=== PATIENT | male | born 1975 | race Caucasian/White ===

== ENCOUNTER 2018-08-12 18:31 | Inpatient (IN) ==
--- OUTSIDE RECORDS SUMMARY | 2018-08-12 18:34 | External Medical Summary | Continuity of Care Document ---
:1975 Author Name Rica M.Rosa Maria Address Unavailable Unavailable , Care Team Providers Name Role Phone Unavailable Unavailable Unavailable [email or web address] [email or web address] FAVIO III, E Unavailable Unavailable Unavailable Unavailable Unavailable Problems Hypertension (401.9) (I10) PTSD (post-traumatic stress disorder) (309.81) (F43.10) Anxiety (300.00) (F41.9) Cough (786.2) (R05) Shortness of breath (786.05) (R06.02) Wheezing (786.07) (R06.2) Bronchitis (490) (J40) Upper respiratory infection (465.9) (J06.9) Allergies and Adverse Reactions Iodine Crystals (Allergy) Dust (Allergy) Shellfish (Allergy) Reaction: Hives Medications Robitussin DM SYRP; TAKE 1 TEASPOONFUL EVERY 4 TO 6 HOURS NEEDED. , M.D. Refills: 0 CeleXA 40 MG Oral Tablet; 1 tablet daily , M.D. Refills: 0 KlonoPIN 1 MG Oral Tablet; TAKE 1 TABLET TWICE DAILY NEED ED. , M.D. Quantity: 60 Refills: 0 Ventolin HFA 108 (90 Base) MCG/ACT Inhal ation Aerosol Solution; INHALE 2 PUFFS EVERY 4 HOURS NEEDED , M.D. 18 GM Inhaler Quantity: 1 Refills: 5 Lisinopril 10 MG Oral Tablet; TAKE 1 TABLET DAILY. , M.D. 90 Tablet Bottle Quantity: 1 Refills: 3 Omeprazole 40 MG Oral Capsule Delayed Release; TAKE 1 CAPSULE DAILY. KALPANA Gagnon Start: 23-May-2014 Quantity: 30 Refills: 3 raNITIdine HCl - 300 MG Oral Capsule; TAKE 1 CAPSULE A T BEDTIME. KALPANA Gagnon Start: 23-May-2014 Quantity: 1 30 Capsule Bottle Refills: 2 HYDROcodone-Homatropine 5-1.5 MG/5ML Ora l Syrup; TAKE 1 TEASPOONFUL EVERY 4 TO 6 HOURS NEEDED. KALPANA Gagnon Start: 23-May-2014 Quantity: 1 180 ML Bottle Refills: 3 Procedures History of Excision Of Lingual Frenum St atus: Completed History of Ankle Surgery Status: Complet ed Immunizations Tdap On: 21-Aug-1994 Family History Mother Family history of lung cancer (V16.1) (Z80.1) Status: Active Father Family history of diabetes mellitus (V18.0) (Z83.3) Status: Active Family history of colon cancer (V16.0) (Z80.0) Status: Activ e Brother Family history of depression (V17.0) (Z81.8) Status: Active Family history of attention deficit hyperactivity diso rder (ADHD) Status: Active (V17.0) (Z81.8) Social History - Smoking Status Former smoker Plan of Treatment Planned Observations Planned Goals not documented Results No Known Results Results not documented
[2018-08-12 20:06] LABS: Basophils # (auto) 0.02 K/uL (0-0.2); Basophils % (auto) 0.2 %; Eosinophils # (auto) 0.09 K/uL (0-0.5); Eosinophils % (auto) 0.9 %; Hematocrit (blood only) 43.5 % (42-52); Hemoglobin 15.1 g/dL (14.0-18.0); Immature Granulocytes # (auto) 0.08 K/uL (0.00-0.02); Immature Granulocytes % (auto) 0.8 %; Lymphocytes % (auto) 24.8 %; Mean Corpuscular Hgb Conc 34.7 g/dL (32-36); Mean Corpuscular Volume 85.8 fL (80-100); Mean Platelet Volume 12.5 fL (7.4-10.4); Monocytes # (auto) 1.03 K/uL (0.11-0.59); Monocytes % (auto) 9.8 %; Neutrophils # (auto) 6.67 K/uL (1.4-6.5); Neutrophils % (auto) 63.5 %; Platelet Count 214 K/uL (130-400); RDW Coefficient of Variation 13.7 % (11.5-14.5); RDW Standard Deviation 42.8 fL (36.4-46.3); Red Blood Count 5.07 M/uL (4.7-6.1); White Blood Count 10.49 K/uL (4.8-10.8)
[2018-08-12 20:25] LABS: Albumin Level 3.7 gm/dl (3.4-5.0); BUN Creatinine Ratio 12.3 (10-20); Calcium 8.5 mg/dl (8.5-10.1); Creatinine Clr Calc Pharmacy 134.9 ml/min; Est GFR (African American) 101.7; Est GFR (Non-African American) 87.7; Potassium 3.6 mmol/L (3.5-5.1)
[2018-08-12 20:33] LABS: Acetaminophen < 2 ug/ml (10-30)
[2018-08-12 20:35] LABS: Bilirubin,Total 0.2 mg/dl (0.2-1); Globulin 3.6 gm/dl (2.5-4.0); Total Protein 7.3 gm/dl (6.4-8.2)
[2018-08-12 20:42] LABS: Appearance Urine Clear (Clear); Bilirubin Urine Negative (Negative); Blood Urine Negative (Negative); Color Urine Yellow; Glucose Urine UA Negative (Negative); Ketones Urine Negative (Negative); Leukocyte Esterase Urine Negative (Negative); Nitrite Urine Negative (Negative); Protein Urine Negative (Negative); Specific Gravity Urine 1.016 (1.000-1.030); Urobilinogen Urine Negative (Negative)
[2018-08-12] MEDS ORDERED: LOSARTAN POTASSIUM 25 MG TAB PO STA (21:00)
[2018-08-12] MEDS ORDERED: LORazepam 0.5 MG TAB PO STA (21:00)
[2018-08-12 21:07] LABS: Amphetamines+Metham, Urine Neg (Neg); Barbiturates, Urine Neg (Neg); Benzodiazepine, Urine Neg (Neg); Cocaine, Urine Neg (Neg); MDMA (Ecstacy), Urine Neg (Neg); Methadone, Urine Neg (Neg); Opiate, Urine Neg (Neg); Phencyclidine, Urine Neg (Neg)
[2018-08-12] MEDS ORDERED: LORazepam 1 MG TAB SL STA (21:48)
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
[2018-08-12] MEDS ORDERED: AMLODIPINE BESYLATE 5 MG TAB PO ONE (22:28)
[2018-08-12] MEDS ORDERED: ALUMINUM/MAGNESIUM SUSP 30 ML UDC PO PRN (23:48)
[2018-08-12] MEDS ORDERED: BISMUTH SUBSALICYLATE PER ML OMNICELL CHARGE PO PRN (23:48)
[2018-08-12] MEDS ORDERED: ACETAMINOPHEN 325 MG TAB PO PRN (23:48)
[2018-08-12] MEDS ORDERED: SODIUM CHLORIDE 0.65% NA SOLN 45 ML (OCEAN) PRN (23:48)
[2018-08-13] MEDS ORDERED: NICOTINE POLACRILEX 2 MG GUM MT PRN (00:45)
[2018-08-13] MEDS ORDERED: LISINOPRIL 10 MG TAB PO SCH (09:00)
[2018-08-13] MEDS: NICOTINE 21 MG/24 HR TDSY TD SCH (10:38)
[2018-08-13] MEDS ORDERED: TRAZODONE HCL 50 MG TAB PO PRN (13:00)
[2018-08-13] MEDS: DULOXETINE HCL 30 MG CAP PO SCH (13:37)
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
[2018-08-13] MEDS ORDERED: LISINOPRIL 10 MG TAB PO STA (16:12)
[2018-08-14] MEDS: NICOTINE 21 MG/24 HR TDSY TD SCH (09:28)
[2018-08-14] MEDS: DULOXETINE HCL 30 MG CAP PO SCH (09:28)
[2018-08-14] MEDS: LISINOPRIL 20 MG TAB PO SCH (09:28)
--- NOTE | 2018-08-14 12:49 | Psychiatric Progress Note ---
Date of Service August 14, 2018 Impression / Recommendations Impression Patient reported improvement in mood this morning, however anxiety has worsened as the days progressed. Patient appears severely anxious during encounter today and reports concern regarding his father's medical treatment and his brother having to take care of his usual tasks at home. We reviewed potential medication changes to further address mood and anxiety. Patient is agreeable to further titration of Cymbalta in order to target anxiety and depression. Risks and benefits reviewed, will titrate to 60 mg starting tomorrow morning. Patient is also concerned that hydroxyzine at the current as needed dosage has not been effective for his level of anxiety today. Discussed option to increase dosage of hydroxyzine to 50 mg as needed, as even the 100 mg total bedtime dose he received last night was not effective for sedation. Encouraged patient to share with staff if he does experience significant fatigue with new dosage. Patient was also agreeable to titrating trazodone to 100 mg at bedtime, which will be scheduled each evening at his request given long-standing history of sleep concerns. Risks and benefits of all medication adjustments were reviewed and patient was agreeable to these changes. Patient denies suicidality at this time; however, his ongoing anxiety related to stressors of admission creates concern for rapid decompensation if discharged prematurely. Ideally patient would participate in family meeting with his girlfriend or other identified outpatient support in order to mitigate some of these risk factors. Patient remains at high risk of harm to self if discharged prematurely, therefore ongoing inpatient psychiatric hospitalization is recommended. (1) MDD (major depressive disorder): 08/13 - Per H&P - q15 minute Safety checks public aid insurance application therapy referral PCP referral Meeting with girlfriend Encourage psychiatrist as part of outpt treatment plan for aftercare - pt rather hesitant about psychiatrist after care as feels he had bad experiences with psychiatrists to date. pt was wondering about Viibryd but given practical concerns about this med including not on formulary at this hospital, pt indicated open to resuming med took in 2014 which was Cymbalta (took 30mg for coule months and seems was stopped shortly after raised to 60mg with possible worsening SI, however per medical record SI concerns were still quite present even in the weeks off the med). 08/14 - Titrate Cymbalta to 60mg qAM starting tomorrow morning - Family meeting with girlfriend will need scheduled (2) Anxiety: 08/13 - Per H&P - Vistaril for anxiety and insomnia concerns and trazodone as additional med option for insomnia given pt's h/o trazodone being helpful and Benadryl has been limited benefit in past and Vistaril might not be effective (last night pt was likely quite exhausted and drained by time got to to bed and might have been able to sleep more from context then from med impact) pt wondering about Klonopin for anxiety but given AUD history and pt's overall history will aim for prn Vistaril as first adjunctive med for anxiety symptoms Cymbalta started at 30mg a day and might titrate to 60mg if tolerating well 08/14 - Will trial titration of hydroxyzine to 50mg prn anxiety, given reports that lower dosage is ineffective - monitor for sedation - Will titrate trazodone to 100mg qHS and have scheduled per patient request, as required several prn medications last evening to assist with sleep - Assist patient with development of healthy and effective coping strategies (3) Hypertension: 08/13 - Per H&P - lisinopril 10mg qam added given pt's history of taking this med in the past, low threshold to raise to 20mg a day if bp not improving further 08/14 - Lisinopril increased to 20mg qAM starting this morning; as received a repeat dose of 10mg yesterday afternoon - Further titration as needed - additional anxiety reported today may also be contributing to high readings Inventory Assets Strengths: seeking therapy appts, seeking medication to address symptoms Needs: health insurance and outpatient providers, Risk Factors Assessment 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 Pt is admitted voluntarily. Pt has extensive history of major depressive disorder, anxiety, and h/o alcohol use disorder who drinks alcohol only a few times a year at most in past number of years. Chief Complaint "Um, a little more anxious now. I was feeling pretty good this morning." Review of Systems Notes Constitutional: reports anxiety and fatigue; poor sleep last evening Cardiovascular: denied Respiratory: denied Gastrointestinal: denied Neurological: denied Psychiatric: denies symptoms other than stated above Total of at least 10 systems reviewed, pertinent positives as above and in HPI. Sleep Information Total Hours of Sleep: 6.75 Sleep Comments: pt on q-15 minute checks Meal Information Percent Meal Consumed - Breakfast: 100 Percent Meal Consumed - Lunch: 0 Percent Meal Consumed - Dinner: 100 Nutrition Comment: pt ate breakfast late Subjective Subjective Patient was seen & assessed and interval progress reviewed with Treatment Team. Staff reports the patient's mood appears to be improving somewhat. Patient was provided with trazodone in order to assist with insomnia. It is reported he and his girlfriend have reconciled, and we will need to schedule family meeting if patient is still willing. Patient was seen today to assess progress since admission. Patient states he was doing well this morning; however, is noticing worsening anxiety throughout the day today. He admits to just getting off the phone with his brother whom he states is "having a mental breakdown of his own." The patient states his brother has taken over a lot of his responsibilities with caring for his dad since the patient has been admitted to the hospital. In addition to this, the patient states his girlfriend has not yet called today which is concerning to him as well. Patient denies any noticeable side effects from medication adjustments made yesterday. He is agreeable to continuing to titrate Cymbalta to target mood and anxiety. Patient states current dosage of hydroxyzine has been ineffective to manage anxiety, and he is requesting Klonopin as this is been effective in the past. Patient states he had difficulty falling asleep last evening requiring 2 as needed doses of 50 mg hydroxyzine in combination with 50 mg of trazodone. He is agreeable to titrating trazodone to better target sleep. He is requesting that this medication be scheduled as he has had "sleep issues since I was 13." Patient de nies any suicidal thoughts today, but does appear severely anxious. He does not report any other questions or concerns at this time. Physical Exam Psychiatric Orientation: alert, oriented x 3, cooperative (Superficialy) and + guarded (Somewhat) Apperance: appropriately groomed Eye Contact: + poor eye contact (Looking at the floor or past this provider, limited direct eye contact) Motor Behavior: steady gait and station and + psychomotor agitation (Displays restlessness, frequently running fingers through hair, anxiously changing positions in chair) Speech: normal rate/rhythm/volume of speech (Somewhat anxious tone) Affect: + depressed affect, + anxious affect and mood congruent with affect Mood: + anxious mood; no depressed mood "More anxiety than anything right now" Thought Process: goal directed thought process and linear/logical thought process Thought Content: + preoccupation (With concerns regarding his father's medical treatment) and + paranoid Suicidal Thoughts: denies suicidal thoughts and denies suicidal plan Homicidal Thoughts: denies homicidal thoughts Hallucinations: no auditory hallucinations and no visual hallucinations Cognition: recent memory grossly intact, remote memory grossly intact, attention grossly intact and language grossly intact Estimated Intelligence: consistent with education level Insight: + fair insight Judgement: + fair judgement Vital Signs (Past 24 Hours) Last Vital Signs Temp 36.6 C 08/14/18 06:49 Pulse 97 H 08/14/18 10:04 Resp 20 08/14/18 06:49 BP 164/93 H 08/14/18 10:04 Pulse Ox 93 08/13/18 00:23 Results & Data Current Inpatient Medications Current Inpatient Medications: Current Inpatient Medications Acetaminophen (Tylenol) 650 mg PO Q4H PRN PRN Reason: Headache or Minor Fever Stop: 09/11/18 23:47 Al Hydrox/Mg Hydrox/Simethicone (Maalox) 30 ml PO Q4H PRN PRN Reason: GI Upset Stop: 09/11/18 23:47 Bismuth Subsalicylate (Kaopectate) 15 ml PO PRN PRN PRN Reason: Loose Stool Stop: 09/11/18 23:47 Duloxetine HCl (Cymbalta) 30 mg PO QAM [facility] Stop: 09/12/18 12:59 Last Admin: 08/14/18 09:28 Dose: 30 mg Documented by: Hydroxyzine HCl (Vistaril) 25 mg PO Q4H PRN PRN Reason: Anxiety Stop: 09/11/18 23:47 Last Admin: 08/14/18 10:20 Dose: 25 mg Documented by: Hydroxyzine HCl (Vistaril) 50 mg PO HSZ PRN PRN Reason: Insomnia Stop: 09/11/18 23:47 Last Admin: 08/14/18 01:01 Dose: 50 mg Documented by: Lisinopril (Zestril) 20 mg PO QAM [facility] Stop: 09/13/18 08:59 Last Admin: 08/14/18 09:28 Dose: 20 mg Documented by: Magnesium Hydroxide (Milk Of Magnesia) 30 ml PO DAILY PRN PRN Reason: Constipation Stop: 09/11/18 23:47 Miscellaneous (Remove Nicoderm Patch) 1 ea N/A DAILY@2200 [facility] Stop: 09/12/18 21:59 Last Admin: 08/13/18 21:00 Dose: Not Given Documented by: Nicotine (Nicoderm Cq) 21 mg TD QAM [facility] Stop: 09/12/18 08:59 Last Admin: 08/14/18 09:28 Dose: 21 mg Documented by: Nicotine Polacrilex (Nicorette 2mg) 1 piece MT UD PRN PRN Reason: Nicotine Withdrawal Stop: 09/12/18 00:44 Sodium Chloride ([place] Nasal) 1 - 2 sprays NA PRN PRN PRN Reason: Nasal Dryness/Congestion Stop: 09/11/18 23:47 Trazodone HCl (Desyrel) 50 mg PO HS PRN PRN Reason: insomnia Stop: 09/12/18 12:59 Last Admin: 08/14/18 01:41 Dose: 50 mg Documented by: Post Discharge Appointments Primary Care Physician Name Of Family Doctor: [facility] (Enrollment appt) Primary Care Date of Appointment with PCP: 08/18/18 Time of Appointment with PCP: 1:30 p.m. Provider Appointment Comment: [address], [address], [place], [place] Psychiatrist Name of Psychiatrist: Enrollment appt: please bring the following: photo ID (proof of address) Psychiatrist's Phone Number: proof of income (1 month worth of paystubs), most recent tax return Therapist Name of Therapist: denies Dynamic Etching Processor Name of Dynamic Etching Processor: Denies Contact Information Discharge Discharge Address: [address] [place] [address] CPT Code CPT Code 94024 (1) MDD (major depressive disorder) Active/Remission status: currently active Major depression episode severity: moderate Major depression recurrence: recurrent Qualified Code(s): F33.1 - Major depressive disorder, recurrent, moderate (2) Hypertension Hypertension type: essential hypertension Qualified Code(s): I10 - Essential (primary) hypertension
[2018-08-14] MEDS: MAGNESIUM HYDROXIDE SUSP 30 ML UDC PO PRN (17:19)
[2018-08-14] MEDS ORDERED: TRAZODONE HCL 100 MG TAB PO SCH (22:00)
[2018-08-15] MEDS: LISINOPRIL 20 MG TAB PO SCH (08:58)
[2018-08-15] MEDS: DULOXETINE HCL 60 MG CAP PO SCH (08:58)
[2018-08-15] MEDS: NICOTINE 21 MG/24 HR TDSY TD SCH (08:58)
[2018-08-15] MEDS: MAGNESIUM HYDROXIDE SUSP 30 ML UDC PO PRN (14:19)
[2018-08-15] MEDS ORDERED: LISINOPRIL 10 MG TAB PO ONE (15:30)
--- NOTE | 2018-08-15 18:24 | Psychiatric Progress Note ---
Date of Service August 15, 2018 Impression / Recommendations Impression Patient reports improvement in mood this morning; however, states that his anxiety has increased since learning that both his brother and his girlfriend are unavailable for family meetings before 08/18. Patient does appear to be visit believed anxious when discussing this. Patient was offered the possibility of a phone meeting with girlfriend if this works better with her schedule. Reviewed ongoing hypertension, and patient is agreeable with further titration of lisinopril. We will provide patient with 10 mg as one-time dose now, with increase to 30 mg daily starting tomorrow morning. Patient reports ongoing difficulty falling asleep, and is agreeable to titrating his dose of trazodone to 150 mg tonight. Patient admits to feeling "shaky". Tremor is not visualized, he denies headache, nausea, visual hallucinations, diaphoresis, hot flashes, or chills. Pupils are not observed to be dilated. We will continue Cymbalta at current dose of 60 mg. Patient is agreeable with changes outlined above. Patient denies SI, but would still recommend family meeting prior to discharge to ensure safety and attempt to further mitigate risk factors. Patient remains at high risk of harm to self if discharged prematurely, therefore ongoing inpatient psychiatric hospitalization is recommended. (1) MDD (major depressive disorder): 08/13 - Per H&P - q15 minute Safety checks public aid insurance application therapy referral PCP referral Meeting with girlfriend Encourage psychiatrist as part of outpt treatment plan for aftercare - pt rather hesitant about psychiatrist after care as feels he had bad experiences with psychiatrists to date. pt was wondering about Viibryd but given practical concerns about this med including not on formulary at this hospital, pt indicated open to resuming med took in 2014 which was Cymbalta (took 30mg for coule months and seems was stopped shortly after raised to 60mg with possible worsening SI, however per medical record SI concerns were still quite present even in the weeks off the med). 08/14 - Titrate Cymbalta to 60mg qAM starting tomorrow morning - Family meeting with girlfriend will need scheduled 08/15 - Continue Cymbalta at 60mg daily - Attempting to schedule meeting with girlfriend (2) Anxiety: 08/13 - Per H&P - Vistaril for anxiety and insomnia concerns and trazodone as additional med option for insomnia given pt's h/o trazodone being helpful and Benadryl has been limited benefit in past and Vistaril might not be effective (last night pt was likely quite exhausted and drained by time got to to bed and might have been able to sleep more from context then from med impact) pt wondering about Klonopin for anxiety but given AUD history and pt's overall history will aim for prn Vistaril as first adjunctive med for anxiety symptoms Cymbalta started at 30mg a day and might titrate to 60mg if tolerating well 08/14 - Will trial titration of hydroxyzine to 50mg prn anxiety, given reports that lower dosage is ineffective - monitor for sedation - Will titrate trazodone to 100mg qHS and have scheduled per patient request, as required several prn medications last evening to assist with sleep - Assist patient with development of healthy and effective coping strategies 08/15 - Continue hydroxyzine as needed; trazodone titrated to 150mg this evening (3) Hypertension: 08/13 - Per H&P - lisinopril 10mg qam added given pt's history of taking this med in the past, low threshold to raise to 20mg a day if bp not improving further 08/14 - Lisinopril increased to 20mg qAM starting this morning; as received a repeat dose of 10mg yesterday afternoon - Further titration as needed - additional anxiety reported today may also be contributing to high readings 08/15 - One time dose of lisinopril 10mg given this afternoon - Will order dose increase to 30mg daily starting tomorrow morning; continue observations Inventory Assets Strengths: seeking therapy appts, seeking medication to address symptoms Needs: health insurance and outpatient providers, Risk Factors Assessment 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 Pt is admitted voluntarily. Pt has extensive history of major depressive disorder, anxiety, and h/o alcohol use disorder who drinks alcohol only a few times a year at most in past number of years. Chief Complaint "Just upset right now." Review of Systems Notes Constitutional: reports feeling "shaky" Cardiovascular: denied Respiratory: denied Gastrointestinal: reports constipation Neurological: denied Psychiatric: denies symptoms other than stated above Total of at least 10 systems reviewed, pertinent positives as above and in HPI. Sleep Information Total Hours of Sleep: 7 Sleep Comments: pt on q-15 minute checks Meal Information Percent Meal Consumed - Breakfast: 100 Percent Meal Consumed - Lunch: 100 Percent Meal Consumed - Dinner: 100 Nutrition Comment: pt ate breakfast late Subjective Subjective Patient was seen & assessed and interval progress reviewed with Nursing. Staff reports patient continues to appear flat and anxious on the unit. Blood pressure remains elevated overall, but is somewhat improved. Patient was seen today to assess progress since admission. Patient states that he was in a better mood this morning; however, now reports anxiety. He states he has reached out to both his brother and his girlfriend and both are unavailable for a meeting with social work before 08/18. Patient is concerned that this will require his length of stay to be lengthened. We reviewed that at times family meetings can be done via phone if necessary. Patient was comforted by this, but continued to display anxiety during remainder of encounter. Patient states that physically he feels "shaky," but denies any other concerns at this time. Patient denies SI or other needs from this provider. Physical Exam Psychiatric Orientation: alert, oriented x 3 and cooperative Apperance: appropriately dressed and appropriately groomed Eye Contact: + poor eye contact (Looking at the floor or past this provider, limited direct eye contact) Motor Behavior: steady gait and station and + psychomotor agitation (frequently running fingers through hair, changing positions in chair) Speech: normal rate/rhythm/volume of speech (Somewhat anxious tone) Affect: + anxious affect, + blunted affect and mood congruent with affect Mood: + anxious mood; no depressed mood "Just upset" Thought Process: goal directed thought process and linear/logical thought process Thought Content: reality based without delusions Suicidal Thoughts: denies suicidal thoughts and denies suicidal plan Homicidal Thoughts: denies homicidal thoughts Hallucinations: no auditory hallucinations and no visual hallucinations Cognition: recent memory grossly intact, remote memory grossly intact, attention grossly intact and language grossly intact Estimated Intelligence: consistent with education level Insight: + fair insight Judgement: + fair judgement Vital Signs (Past 24 Hours) Last Vital Signs Temp 36.8 C 08/15/18 12:33 Pulse 99 H 08/15/18 17:01 Resp 18 08/15/18 17:01 BP 167/81 H 08/15/18 17:01 Pulse Ox 93 08/13/18 00:23 Results & Data Current Inpatient Medications Current Inpatient Medications: Current Inpatient Medications Acetaminophen (Tylenol) 650 mg PO Q4H PRN PRN Reason: Headache or Minor Fever Stop: 09/11/18 23:47 Al Hydrox/Mg Hydrox/Simethicone (Maalox) 30 ml PO Q4H PRN PRN Reason: GI Upset Stop: 09/11/18 23:47 Bismuth Subsalicylate (Kaopectate) 15 ml PO PRN PRN PRN Reason: Loose Stool Stop: 09/11/18 23:47 Duloxetine [facility] ([facility]alta) [facility] Stop: 09/14/18 08:59 Last Admin: 08/15/18 08:58 Dose: 60 mg Documented by: Hydroxyzine HCl (Vistaril) 50 mg PO HSZ PRN PRN Reason: Insomnia Stop: 09/11/18 23:47 Last Admin: 08/14/18 01:01 Dose: 50 mg Documented by: Hydroxyzine HCl (Vistaril) 50 mg PO Q4H PRN PRN Reason: Anxiety Stop: 09/11/18 23:47 Last Admin: 08/15/18 17:09 Dose: 50 mg Documented by: Lisinopril (Zestril) 30 mg PO QAM [facility] Stop: 09/15/18 08:59 Magnesium Hydroxide (Milk Of Magnesia) 30 ml PO DAILY PRN PRN Reason: Constipation Stop: 09/11/18 23:47 Last Admin: 08/15/18 14:19 Dose: 30 ml Documented by: Miscellaneous (Remove Nicoderm Patch) 1 ea N/A DAILY@2200 [facility] Stop: 09/12/18 21:59 Last Admin: 08/14/18 21:26 Dose: 1 ea Documented by: Nicotine (Nicoderm Cq) 21 mg [facility] Stop: 09/12/18 08:59 Last Admin: 08/15/18 08:58 Dose: 21 mg Documented by: Nicotine Polacrilex (Nicorette 2mg) 1 piece MT UD PRN PRN Reason: Nicotine Withdrawal Stop: 09/12/18 00:44 Sodium Chloride ([place] Nasal) 1 - 2 sprays NA PRN PRN PRN Reason: Nasal Dryness/Congestion Stop: 09/11/18 23:47 Trazodone HCl (Desyrel) 150 mg PO HS [facility] Stop: 09/14/18 21:59 Post Discharge Appointments Primary Care Physician Name Of Family Doctor: [facility] (Enrollment appt) Primary Care Date of Appointment with PCP: 08/18/18 Time of Appointment with PCP: 1:30 p.m. Provider Appointment Comment: [id number], [address], [place], [place] Psychiatrist Name of Psychiatrist: Enrollment appt: please bring the following: photo ID (proof of address) Psychiatrist's Phone Number: proof of income (1 month worth of paystubs), most recent tax return Therapist Name of Therapist: denies Front Line Leader Name of Front Line Leader: Denies Contact Information Discharge Discharge Address: [address] [place] [id number] CPT Code CPT Code 17809 (1) MDD (major depressive disorder) Active/Remission status: currently active Major depression episode severity: moderate Major depression recurrence: recurrent Qualified Code(s): F33.1 - Major depressive disorder, recurrent, moderate (2) Hypertension Hypertension type: essential hypertension Qualified Code(s): I10 - Essential (primary) hypertension
[2018-08-15] MEDS: TRAZODONE HCL 100 MG TAB PO SCH (21:02)
[2018-08-16] MEDS: NICOTINE 21 MG/24 HR TDSY TD SCH (09:07)
[2018-08-16] MEDS: DULOXETINE HCL 60 MG CAP PO SCH (09:07)
[2018-08-16] MEDS: LISINOPRIL 20 MG TAB PO SCH (09:08)
[2018-08-16] MEDS: MAGNESIUM HYDROXIDE SUSP 30 ML UDC PO PRN (12:53)
--- NOTE | 2018-08-16 14:09 | Psychiatric Progress Note ---
Date of Service August 16, 2018 Impression / Recommendations Impression Patient reports improvement in mood. He feels meeting with his girlfriend this afternoon went well, it is reported that they both deny safety concerns at this time. Patient and girlfriend feel comfortable with discharge in the next day or so. Patient continues to report difficulty falling asleep, which is usual for him on an outpatient basis as well. Patient is agreeable with continuing his current medication regimen unchanged. We will follow up tomorrow to ensure that improvement in mood has been consistent, and discuss safe discharge planning. Patient remains at high risk of harm to himself if discharged prior to ensuring these arrangements. (1) MDD (major depressive disorder): 08/13 - Per H&P - q15 minute Safety checks public aid insurance application therapy referral PCP referral Meeting with girlfriend Encourage psychiatrist as part of outpt treatment plan for aftercare - pt rather hesitant about psychiatrist after care as feels he had bad experiences with psychiatrists to date. pt was wondering about Viibryd but given practical concerns about this med including not on formulary at this hospital, pt indicated open to resuming med took in 2014 which was Cymbalta (took 30mg for coule months and seems was stopped shortly after raised to 60mg with possible worsening SI, however per medical record SI concerns were still quite present even in the weeks off the med). 08/14 - Titrate Cymbalta to 60mg qAM starting tomorrow morning - Family meeting with girlfriend will need scheduled 08/15 - Continue Cymbalta at 60mg daily - Attempting to schedule meeting with girlfriend 08/16 - Continue current medication regimen - Successful meeting with girlfriend today (2) Anxiety: 08/13 - Per H&P - Vistaril for anxiety and insomnia concerns and trazodone as additional med option for insomnia given pt's h/o trazodone being helpful and Benadryl has been limited benefit in past and Vistaril might not be effective (last night pt was likely quite exhausted and drained by time got to to bed and might have been able to sleep more from context then from med impact) pt wondering about Klonopin for anxiety but given AUD history and pt's overall history will aim for prn Vistaril as first adjunctive med for anxiety symptoms Cymbalta started at 30mg a day and might titrate to 60mg if tolerating well 08/14 - Will trial titration of hydroxyzine to 50mg prn anxiety, given reports that lower dosage is ineffective - monitor for sedation - Will titrate trazodone to 100mg qHS and have scheduled per patient request, as required several prn medications last evening to assist with sleep - Assist patient with development of healthy and effective coping strategies 08/15 - Continue hydroxyzine as needed; trazodone titrated to 150mg this evening 08/16 - Reports some improvement, appearing more relaxed (3) Hypertension: 08/13 - Per H&P - lisinopril 10mg qam added given pt's history of taking this med in the past, low threshold to raise to 20mg a day if bp not improving further 08/14 - Lisinopril increased to 20mg qAM starting this morning; as received a repeat dose of 10mg yesterday afternoon - Further titration as needed - additional anxiety reported today may also be contributing to high readings 08/15 - One time dose of lisinopril 10mg given this afternoon - Will order dose increase to 30mg daily starting tomorrow morning; continue observations 08/16 - Continue lisinopril 30mg, recommending outpatient follow-up for ongoing management Inventory Assets Strengths: seeking therapy appts, seeking medication to address symptoms Needs: health insurance and outpatient providers, Risk Factors Assessment 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 Pt is admitted voluntarily. Pt has extensive history of major depressive disorder, anxiety, and h/o alcohol use disorder who drinks alcohol only a few times a year at most in past number of years. Chief Complaint "Yeah, the meeting went very well." Review of Systems Notes Constitutional: denied Cardiovascular: denied Respiratory: denied Gastrointestinal: reports constipation Neurological: denied Psychiatric: denies symptoms other than stated above Total of at least 10 systems reviewed, pertinent positives as above and in HPI. Sleep Information Total Hours of Sleep: 5.25 Sleep Comments: pt on q-15 minute checks Meal Information Percent Meal Consumed - Breakfast: 100 Percent Meal Consumed - Lunch: 100 Percent Meal Consumed - Dinner: 100 Nutrition Comment: pt ate breakfast late Subjective Subjective Patient was seen & assessed and interval progress reviewed with Treatment Team. Staff reports patient with his girlfriend scheduled for 1:00 this afternoon. Patient was agreeable to referral for aftercare at [facility]. Patient was seen today to assess progress since admission. Conversation was following his meeting with his girlfriend which she states went "very well." Patient states that he felt comfortable with what was discussed, and continues to feel supported by his girlfriend. Patient states he did not sleep well last evening, continuing to have racing thoughts preventing sleep. Patient admits at home he usually falls asleep to the sound of the television. Patient was educated on sleep hygiene and was encouraged to consider the use of a sound machine or radio, both while he is admitted here and is a substitution for the television once he returns home. Patient states he continues to tolerate his medication regimen. We reviewed that his blood pressure remains higher than desired long- term, but has been improving. Patient denies any suicidality, is hopeful for discharge within the next few days. Patient denies any other needs or concerns today. Physical Exam Psychiatric Orientation: alert, oriented x 3 and cooperative Apperance: appropriately dressed and appropriately groomed Eye Contact: good eye contact Motor Behavior: steady gait and station and no abnormal motor movements (Appearing much more calm today) Speech: normal rate/rhythm/volume of speech Affect: euthymic affect, + constricted affect (Somewhat) and mood congruent with affect Mood: no depressed mood and no anxious mood "Feeling pretty good today." Thought Process: goal directed thought process and linear/logical thought process Thought Content: reality based without delusions Suicidal Thoughts: denies suicidal thoughts and denies suicidal plan Homicidal Thoughts: denies homicidal thoughts Hallucinations: no auditory hallucinations and no visual hallucinations Cognition: recent memory grossly intact, remote memory grossly intact, attention grossly intact and language grossly intact Estimated Intelligence: consistent with education level Insight: + fair insight Judgement: + fair judgement Vital Signs (Past 24 Hours) Last Vital Signs Temp 36.6 C 08/16/18 06:53 Pulse 84 08/16/18 09:36 Resp 18 08/16/18 06:53 BP 134/89 08/16/18 09:36 Pulse Ox 93 08/13/18 00:23 Results & Data Current Inpatient Medications Current Inpatient Medications: Current Inpatient Medications Acetaminophen (Tylenol) 650 mg PO Q4H PRN PRN Reason: Headache or Minor Fever Stop: 09/11/18 23:47 Al Hydrox/Mg Hydrox/Simethicone (Maalox) 30 ml PO Q4H PRN PRN Reason: GI Upset Stop: 09/11/18 23:47 Bismuth Subsalicylate (Kaopectate) 15 ml PO PRN PRN PRN Reason: Loose Stool Stop: 09/11/18 23:47 Duloxetine [facility] ([facility]alta) [facility] Stop: 09/14/18 08:59 Last Admin: 08/16/18 09:07 Dose: 60 mg Documented by: Hydroxyzine HCl (Vistaril) 50 mg PO HSZ PRN PRN Reason: Insomnia Stop: 09/11/18 23:47 Last Admin: 08/14/18 01:01 Dose: 50 mg Documented by: Hydroxyzine HCl (Vistaril) 50 mg PO Q4H PRN PRN Reason: Anxiety Stop: 09/11/18 23:47 Last Admin: 08/15/18 17:09 Dose: 50 mg Documented by: Lisinopril (Zestril) [facility] [place] Stop: 09/15/18 08:59 Last Admin: 08/16/18 09:08 Dose: 30 mg Documented by: Magnesium Hydroxide (Milk Of Magnesia) 30 ml PO DAILY PRN PRN Reason: Constipation Stop: 09/11/18 23:47 Last Admin: 08/16/18 12:53 Dose: 30 ml Documented by: Miscellaneous (Remove Nicoderm Patch) 1 ea N/A DAILY@2200 [facility] Stop: 09/12/18 21:59 Last Admin: 08/15/18 21:03 Dose: Not Given Documented by: Nicotine (Nicoderm Cq) 21 mg TD [facility] [place] Stop: 09/12/18 08:59 Last Admin: 08/16/18 09:07 Dose: 21 mg Documented by: Nicotine Polacrilex (Nicorette 2mg) 1 piece MT UD PRN PRN Reason: Nicotine Withdrawal Stop: 09/12/18 00:44 Sodium Chloride (Clay Nasal) 1 - 2 sprays NA PRN PRN PRN Reason: Nasal Dryness/Congestion Stop: 09/11/18 23:47 Trazodone HCl (Desyrel) 150 mg PO HS KANDI Stop: 09/14/18 21:59 Last Admin: 08/15/18 21:02 Dose: 150 mg Documented by: Post Discharge Appointments Primary Care Physician Name Of Family Doctor: [facility] (Enrollment appt) Primary Care Date of Appointment with PCP: 08/18/18 Time of Appointment with PCP: 1:30 p.m. Provider Appointment Comment: [id number], [address], [place], [place] Psychiatrist Name of Psychiatrist: Enrollment appt: please bring the following: photo ID (proof of address) Psychiatrist's Phone Number: proof of income (1 month worth of paystubs), most recent tax return Therapist Name of Therapist: denies Fitness Instructor Name of Fitness Instructor: Denies Contact Information Discharge Discharge Address: [address] [place] [address], [place] [address] CPT Code CPT Code 05476 (1) MDD (major depressive disorder) Active/Remission status: currently active Major depression episode severity: moderate Major depression recurrence: recurrent Qualified Code(s): F33.1 - Major depressive disorder, recurrent, moderate (2) Hypertension Hypertension type: essential hypertension Qualified Code(s): I10 - Essential (primary) hypertension
[2018-08-16] MEDS: TRAZODONE HCL 100 MG TAB PO SCH (21:10)
[2018-08-17] MEDS: DULOXETINE HCL 60 MG CAP PO SCH (08:44)
[2018-08-17] MEDS: NICOTINE 21 MG/24 HR TDSY TD SCH (08:44)
[2018-08-17] MEDS: LISINOPRIL 20 MG TAB PO SCH (08:45)
[2018-08-17] MEDS: MAGNESIUM HYDROXIDE SUSP 30 ML UDC PO PRN (09:02)
--- NOTE | 2018-08-17 10:01 | Discharge Summary ---
Date of Service August 17, 2018 History of Present Illness 42 yr old male living with gf has longstanding h/o depression and anxiety and gets panicked with agitation/anger when things don't go well who tends to struggle with MOther's day since being the one to find his mother on Mother's day when has was 19 years old. Pt endorsed no recent treatment for depression or anxiety but has been on a few different medications in the past. He also has longstanding h/o HTN but again has not obtained treatment for that for several years. He was brought to the ER by police under a petition due ot his suicidal threatening comments while on a crisis hotline. He signed in a 201 voluntary commitment. he shared that he has had a number of stressors lately adding to his depression and anxiety. 1) anniversary of mother dying, 2) aim to confront brother leodan BAI about how he is handling funds and to aim to switch POA to pt as pt is handling other aspects of pt's estate. 3) recently sent notice to a good friend to stop all contact given concern that person is stealing from parents estate. Pt is quite weary/paranoid over possible further actions this person might do. 4) pt's gf and him had been on a break a few months ago and hse was with another rosina during that time, yesterday pt saw letters between them that were quite distressing for pt to read. 5) pt's gf was having her son visit for mother's day weekend and he wanted to give them space but then felt more isolated, likely worsened by the fact that he feels unable to have contact with his own son. Pt has psychiatric admission that were in 2012 and 2013 and one night in Mar 2015 ([facility] for 03/18). Pt has h/o celexa and cymbalta and viirbyd and wellbutrin. Celexa caused sexual s/e, viirbryd was well toelrated and helpful but too expensive, Wellbutrin lead to a sz. pt also has h/o taking Klonopin up to 1mg bid (likely [id number]) Pt has extensive h/o insomnia concerns with OTC options not effective for him (various Benadryl options, melatonin, valerian root) Pt antonio s found trazodone to help his sleep in the past and he felt that Vistaril had him sleep last night and again when took it early this morning. Pt has past h/o lisinopril that he think was raised some before it more fully controlled his BP last rx'd about 3 years ago but had some of brother's old supply a while back. He denied past suicidal behaviors. He denied h/o hypomanic symptoms/episodes. He appears to struggle with frustration tolerance/resentment. He drank 2-3 mixed drinks before calling the crisis hotline and reported last alcohol usage prior was in May 2018 and last time before that was approx October or Nov 2017. He reports limited alcohol usage in this manner since approx 6-7 years ago, following a DUI and also the starting relationship with GF who needs sobriety in her life. He denied h/o AH or VH and reports only paranoid thinking is concerns about how his above former friend might act out as limits to contact being set upon him. pt helps care for father with dementia, office of aging called as pt in ER to help with this, brother coming in from [facility] [place] to address father's needs. severely elevated BP in ER lowered with dose of Norvasc and Cozaar with pt having remote h/o better controlled bp with taking lisinopril Pt endorsed past h/o cig smoking that stopped in general about 6 years ago but has been using 3 cartridges a day for vaping lately and had some cigs this past week. He denied other substance usage. He helps tend to father's concerns/estate and this occupies much of his time lately. 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 feels therapy helpful in past, been long tie since any therapy appt, pt reports bad experiences with psychiatrists in past and outpt med management from past appears to be mostly from PCP (was Kristofer and then Berkley) Physical Exam Psychiatric Orientation: alert, oriented x 3 and cooperative Apperance: appropriately dressed and appropriately groomed Eye Contact: good eye contact Motor Behavior: steady gait and station and no abnormal motor movements Speech: normal rate/rhythm/volume of speech Affect: euthymic affect and mood congruent with affect Mood: no depressed mood and no anxious mood "Good. I feel really positive." Thought Process: goal directed thought process, linear/logical thought process and clear/coherent thought process Thought Content: reality based without delusions Suicidal Thoughts: denies suicidal thoughts and denies suicidal plan Homicidal Thoughts: denies homicidal thoughts Hallucinations: no auditory hallucinations and no visual hallucinations Cognition: recent memory grossly intact, remote memory grossly intact, attention grossly intact and language grossly intact Estimated Intelligence: consistent with education level Insight: good insight Judgement: good judgement Vital Signs (Past 24 Hours) Last Vital Signs Temp 36.5 C 08/17/18 06:00 Pulse 76 08/17/18 06:00 Resp 20 08/17/18 06:00 BP 129/81 08/17/18 06:00 Pulse Ox 93 08/13/18 00:23 Principal Diagnosis Major depressive disorder, Anxiety Psychiatric Data 42-year-old male admitted voluntarily for inpatient psychiatric treatment, after being brought to the ED on a 302 warrant by police. Pt had made concerning statements while on the crisis hotline, and had declined their recommendation for inpatient treatment. Pt was ultimately agreeable for treatment and was willing to resume medications to target depressive symptoms and anxiety. Pt was restarted on duloxetine, which was titrated to a dose of 60mg by the time of discharge. He had also received trazodone to assist with difficulty sleeping - discharge dose of 150mg. Pt's blood pressure was elevated in the ED, he was agreeable to initiation of lisinopril to reduce BP. Dose was titrated to 30mg by discharge, with some noticeable improvement. Pt was provided with information and education on his D&A use, and was ultimately agreeable to aftercare with a counselor at [facility]. Pt was also agreeable to a referral to [facility], for primary care, as he does not have insurance. Pt had participated actively in group and recreational programming. He was willing to involve his girlfriend in a family meeting which went well, patient continuing to find support from her. Pt completed a safety plan prior to discharge which was personally reviewed with this provider. Red flags and effective coping strategies were discussed. At time of discharge, patient reports improvement in mood and resolution of SI. He is future oriented and able to contract for safety outside of the hospital setting. Given improvement in presentation, patient is to be discharge to home at his request. We are recommending ongoing outpatient psychiatric treatment. Day of Discharge Assessment Pt's case was reviewed and discussed with nursing. Staff reports the patient had a productive meeting with his girlfriend yesterday, both supportive of each other. They felt comfortable with discharge today, barring any acute changes in mood or other symptoms. Pt was seen today to assess progress since admission. Pt states he is doing well. He reports having a "good conversation with my son last night" - admitting this brought him a great deal of jose david. Pt feels his mood has been "really positive". He states he is a bit nervous for discharge, but plans to take things "1 step at a time, I already have the remainder of my day planned out." Pt admits his meeting yesterday was productive - "she and I are back on the same page, which feels good." Pt was willing to review his safety plan, and feels he is ready for discharge today. Pt denies any ongoing SI, and is future oriented. He is hopeful, and able to contract for safety outside of the hospital setting. Based on progress observed and patient's current presentation, he seems appropriate for discharge at this time. He is agreeable to keeping the aftercare arrangements made during this hospitalization. ROS: Constitutional: reports improvement in sleep last evening Cardiovascular: denied Respiratory: denied Gastrointestinal: denied Neurological: denied Psychiatric: denies symptoms other than stated above Total of at least 10 systems reviewed, pertinent positives as above and in HPI. Transition of Care Transition Of Care Record: was reviewed with the patient Advance Directives Advance Directives Information Provided: Yes Advance Directives: No Mental Health Advance Directive: No Advance Directives on File: No Living Will: No Power of Metals Analyst: No Advance Directives Reason:: Declines as Mental Health Visit. Risk Factors Assessment Presenting risk factors reviewed on discharge. Precipitating stressors mitigated by: admission for inpatient psychiatric observation and treatment, initiation of medications to target presenting symptoms, attendance of therapeutic treatment groups, development of healthy and effective coping strategies, confirmation of safety measures including the securing of weapons and excess medications, discussing regarding substance abuse and effects on mental health diagnoses, treatment of medical conditions and education on diagnoses. Pt has demonstrated improvement in condition with regard to overall mood, management of anxiety, processing of stressors leading to admission, and now has reasonable aftercare arrangements in place. Pt is requesting discharge and is no longer at acute risk of harm to self or others. They will be discharged with recommendation for ongoing outpatient psychiatric treatment. 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) Tobacco Cessation at Discharge Tobacco Cessation Medication Prescribed at Discharge: Offered & Pt Refused Total Time Total Time Spent: Greater Than 30 Minutes Total Time Includes: Examination of the patient, Discharge Planning, Medication Reconciliation and Communication with other providers Discharge Data Lab Results 08/12/18 08/12/18 08/12/18 19:40 19:40 19:40 WBC 10.49 RBC 5.07 Hgb 15.1 Hct 43.5 MCV 85.8 MCH 29.8 MCHC 34.7 RDW Std Deviation 42.8 RDW Coeff of Drew 13.7 Plt Count 214 MPV 12.5 H Immature Gran % (Auto) 0.8 Neut % (Auto) 63.5 Lymph % (Auto) 24.8 Blanco % (Auto) 9.8 Eos % (Auto) 0.9 Baso % (Auto) 0.2 Immature Gran # (Auto) 0.08 H Neut # (Auto) 6.67 H Lymph # (Auto) 2.60 Blanco # (Auto) 1.03 H Eos # (Auto) 0.09 Baso # (Auto) 0.02 Sodium 139 Potassium 3.6 Chloride 107 Carbon Dioxide 24 Anion Gap 8.0 BUN 13 Creatinine 1.05 Est Cr Clr Drug Dosing 134.9 Est GFR ( Amer) 101.7 Est GFR (Non-Af Amer) 87.7 BUN/Creatinine Ratio 12.3 Glucose 126 H Calcium 8.5 Total Bilirubin 0.2 AST 27 ALT 40 Alkaline Phosphatase 87 Total Protein 7.3 Albumin 3.7 Globulin 3.6 Albumin/Globulin Ratio 1.0 TSH 0.854 Urine Color Urine Appearance Urine pH Ur Specific Vincent Urine Protein Urine Glucose (UA) Urine Ketones Urine Blood Urine Nitrite Urine Bilirubin Urine Urobilinogen Ur Leukocyte Esterase Salicylates 2.0 L Urine Opiates Screen Ur Methadone, Qual Acetaminophen < 2 L Urine Barbiturates Ur Phencyclidine (PCP) U Amphetamin/Meth Scrn MDMA (Ecstasy) Screen U Benzodiazepines Scrn Ur Cocaine Metabolite U Marijuana (THC) Screen U Marijuana THC Carboxy Ethyl Alcohol mg/dL 08/12/18 08/12/18 08/12/18 19:40 20:29 20:29 WBC RBC Hgb Hct MCV MCH MCHC RDW Std Deviation RDW Coeff of Drew Plt Count MPV Immature Gran % (Auto) Neut % (Auto) Lymph % (Auto) Blanco % (Auto) Eos % (Auto) Baso % (Auto) Immature Gran # (Auto) Neut # (Auto) Lymph # (Auto) Blanco # (Auto) Eos # (Auto) Baso # (Auto) Sodium Potassium Chloride Carbon Dioxide Anion Gap BUN Creatinine Est Cr Clr Drug Dosing Est GFR ( Amer) Est GFR (Non-Af Amer) BUN/Creatinine Ratio Glucose Calcium Total Bilirubin AST ALT Alkaline Phosphatase Total Protein Albumin Globulin Albumin/Globulin Ratio TSH Urine Color Yellow Urine Appearance Clear Urine pH 7.0 Ur Specific Vincent 1.016 Urine Protein Negative Urine Glucose (UA) Negative Urine Ketones Negative Urine Blood Negative Urine Nitrite Negative Urine Bilirubin Negative Urine Urobilinogen Negative Ur Leukocyte Esterase Negative Salicylates Urine Opiates Screen Neg Ur Methadone, Qual Neg Acetaminophen Urine Barbiturates Neg Ur Phencyclidine (PCP) Neg U Amphetamin/Meth Scrn Neg MDMA (Ecstasy) Screen Neg U Benzodiazepines Scrn Neg Ur Cocaine Metabolite Neg U Marijuana (THC) Screen Pos H U Marijuana THC Carboxy Ethyl Alcohol mg/dL 104.6 H 08/12/18 20:29 WBC RBC Hgb Hct MCV MCH MCHC RDW Std Deviation RDW Coeff of Drew Plt Count MPV Immature Gran % (Auto) Neut % (Auto) Lymph % (Auto) Blanco % (Auto) Eos % (Auto) Baso % (Auto) Immature Gran # (Auto) Neut # (Auto) Lymph # (Auto) Blanco # (Auto) Eos # (Auto) Baso # (Auto) Sodium Potassium Chloride Carbon Dioxide Anion Gap BUN Creatinine Est Cr Clr Drug Dosing Est GFR ( Amer) Est GFR (Non-Af Amer) BUN/Creatinine Ratio Glucose Calcium Total Bilirubin AST ALT Alkaline Phosphatase Total Protein Albumin Globulin Albumin/Globulin Ratio TSH Urine Color Urine Appearance Urine pH Ur Specific Vincent Urine Protein Urine Glucose (UA) Urine Ketones Urine Blood Urine Nitrite Urine Bilirubin Urine Urobilinogen Ur Leukocyte Esterase Salicylates Urine Opiates Screen Ur Methadone, Qual Acetaminophen Urine Barbiturates Ur Phencyclidine (PCP) U Amphetamin/Meth Scrn MDMA (Ecstasy) Screen U Benzodiazepines Scrn Ur Cocaine Metabolite U Marijuana (THC) Screen U Marijuana THC Carboxy 58 A Ethyl Alcohol mg/dL Hospital Course (1) MDD (major depressive disorder): 08/13 - Per H&P - q15 minute Safety checks public aid insurance application therapy referral PCP referral Meeting with girlfriend Encourage psychiatrist as part of outpt treatment plan for aftercare - pt rather hesitant about psychiatrist after care as feels he had bad experiences with psychiatrists to date. pt was wondering about Viibryd but given practical concerns about this med including not on formulary at this hospital, pt indicated open to resuming med took in 2014 which was Cymbalta (took 30mg for coule months and seems was st opped shortly after raised to 60mg with possible worsening SI, however per medical record SI concerns were still quite present even in the weeks off the med). 08/14 - Titrate Cymbalta to 60mg qAM starting tomorrow morning - Family meeting with girlfriend will need scheduled 08/15 - Continue Cymbalta at 60mg daily - Attempting to schedule meeting with girlfriend 08/16 - Continue current medication regimen - Successful meeting with girlfriend today (2) Anxiety: 08/13 - Per H&P - Vistaril for anxiety and insomnia concerns and trazodone as additional med option for insomnia given pt's h/o trazodone being helpful and Benadryl has been limited benefit in past and Vistaril might not be effective (last night pt was likely quite exhausted and drained by time got to to bed and might have been able to sleep more from context then from med impact) pt wondering about Klonopin for anxiety but given AUD history and pt's overall history will aim for prn Vistaril as first adjunctive med for anxiety symptoms Cymbalta started at 30mg a day and might titrate to 60mg if tolerating well 08/14 - Will trial titration of hydroxyzine to 50mg prn anxiety, given reports that lower dosage is ineffective - monitor for sedation - Will titrate trazodone to 100mg qHS and have scheduled per patient request, as required several prn medications last evening to assist with sleep - Assist patient with development of healthy and effective coping strategies 08/15 - Continue hydroxyzine as needed; trazodone titrated to 150mg this evening 08/16 - Reports some improvement, appearing more relaxed (3) Hypertension: 08/13 - Per H&P - lisinopril 10mg qam added given pt's history of taking this med in the p ast, low threshold to raise to 20mg a day if bp not improving further 08/14 - Lisinopril increased to 20mg qAM starting this morning; as received a repeat dose of 10mg yesterday afternoon - Further titration as needed - additional anxiety reported today may also be contributing to high readings 08/15 - One time dose of lisinopril 10mg given this afternoon - Will order dose increase to 30mg daily starting tomorrow morning; continue observations 08/16 - Continue lisinopril 30mg, recommending outpatient follow-up for ongoing management Post Discharge Appointments Primary Care Physician Name Of Family Doctor: [facility] (Enrollment appt) Primary Care Date of Appointment with PCP: 08/18/18 Time of Appointment with PCP: 1:30 p.m. Provider Appointment Comment: [id number], [address], [place], [place] Psychiatrist Name of Psychiatrist: Enrollment appt: please bring the following: photo ID (proof of address) Psychiatrist's Phone Number: proof of income (1 month worth of paystubs), most recent tax return Therapist Name of Therapist: Dilcia Gomez Therapist's Date of Therapist Appointment: 08/30/18 Time of Therapist Appointment: 11:30 a.m. Therapy Appointment Comment: [address], [address], [place] [address] [employer] Name of [employer]: Denies Smoking Cessation Counseling Tobacco Cessation Medication Prescribed at Discharge: Offered & Pt Refused Other #1: Name of Aftercare Appointment: [facility] - potential for couples therapy Phone Number of Aftercare Appointment: Aftercare Appointment Comment: [address] [place] [address] #2: Name of Aftercare Appointment: [facility], [facility] - potential for couples therapy Phone Number of Aftercare Appointment: Aftercare Appointment Comment: [address], [place] [address] Contact Information Discharge Discharge Address: [address] [place] [address], [place] [address] Discharge Plan Discharge Items Patient Disposition: Home - Self-Care Reason For Visit: MDR, ANXIETY Discharge Diagnosis: Depression, anxiety Condition: Good Discharge Goals: Decrease discomfort, Improve disease control, Improve function, Increase independence, Learn about illness and Therapeutic intervention Activity: Resume your previous activity Non-emergency contact: Primary Care Provider, Psychiatrist and Therapist Call non-emergency contact if: you have any medication questions and your symptoms worsen Follow-up/Referrals: PCP,NO [Primary Care Provider] - Diet: Regular Addtl Provider Instructions: SPECIAL CARE INSTRUCTIONS: 1. Follow through with your scheduled aftercare appointments. If unable to keep an appointment, please call to reschedule. 2. Take your medication only as prescribed. Medication should not be changed or stopped without the approval of your doctor. In the event of worsening symptoms or concerns about side effects, contact your doctor immediately. 3. Utilize new healthy coping skills, anger management skills, and stress management skills learned during your hospitalization. Journal feelings and process them with a support person. Identify stressors or situations that may result in relapse, deterioration or inappropriate behaviors and develop a plan to deal with those issues. 4. If your coping skills are ineffective and you are in crisis, contact your outpatient providers for direction. If unable to reach your providers, please call the CAN HELP LINE AT or go to the closest Emergency Room. 5. Avoid alcohol and un-prescribed drugs. 6. You have been provided with the Mental Health Advance Directives Pamphlet for your review. AFTERCARE APPOINTMENTS: * Please call your insurance company prior to your scheduled appointment to confirm your aftercare providers are covered. Take your insurance information to your appointments. WHO TO CALL AND WHEN: Medical Emergencies: For questions or emergencies related to your hospital stay, please contact the Inpatient Behavioral Health Unit at [phone]. A english as a second language teacher is on-call 25/10 for the Behavioral Health Unit for emergencies At any time you feel your situation is an emergency, you may also call 911 immediately. Your Doctors Instructions noted above were prepared by provider Marybel Fisher PA-C. Prescriptions: New lisinopril 30 mg tablet 30 mg PO QAM 30 Days Qty: 30 RF: 0 duloxetine 60 mg Capsule,Delayed Release(Dr/Ec) 60 mg PO QAM 30 Days Qty: 30 RF: 0 hydroxyzine HCl 50 mg tablet 50 mg PO Q4H PRN (Reason: anxiety or insomnia) 30 Days Qty: 90 RF: 0 trazodone 150 mg tablet 150 mg PO HS 30 Days Qty: 30 RF: 0 No Action No Known Home Medications RF: 0 Stand-Alone Forms: [facility] Discharge Orders: Discharge Order (Routine); Ordered 08/17/18 Ordered By: Marybel Fisher Admission Data Admit Date/Time: 08/12/18 23:48 Attending Provider: Elias Ulloa I Admit Provider: Elias Ulloa I Primary Care Provider: PCP,NO Service: Psychiatry Other Interventions: Discharge Summary Assessment (RN) Last Done: 08/17/18 10:07 PSY Interdisciplinary Discharge Planning Last Done: 08/17/18 10:12 Pending Studies at Discharge: No DC Date/Time DO NOT enter until pt leaves facility: 08/17/18 11:00
== END 2018-08-17 11:00 | disposition home or self-care (01) | DRG 885 ==
LOC: ED 18:31 → 3S 23:48